=== PATIENT | female | born 1965 | race Caucasian/White ===

== ENCOUNTER 2020-09-21 09:11 | Outpatient (REF) | payer OTHER, SELFPAY ==
[2020-09-23 20:57] LABS: HPV mRNA E6/E7 rflx Not Detected (Not Detected)
== END 2020-09-21 09:12 | disposition home or self-care (01) ==
LOC: HO.LAB 09:11
PROVIDERS: PCP Internal Medicine; Visit Provider Obstetrics & Gynecology
DX: Z01.419 Encounter for gynecological examination (general) (routine) without abnormal findings (principal); N87.1 Moderate cervical dysplasia; N95.9 Unspecified menopausal and perimenopausal disorder; Z11.51 Encounter for screening for human papillomavirus (HPV); E55.9 Vitamin D deficiency, unspecified; I10 Essential (primary) hypertension; Z91.013 Allergy to seafood
CPT/HCPCS: 36415; 87624; 88141; 88142

== ENCOUNTER 2020-10-06 08:24 | Outpatient (REF) | payer OTHER, SELFPAY ==
--- NOTE | ~2020-10-06 | MM_ITS ---
EXAMINATION: MM SCREENING DIGITAL BREAST TOMOSYNTHESIS, BILATERAL CLINICAL INFORMATION: Screening. Asymptomatic. The lifetime risk of breast cancer based on the Tyrer-Cuzick Model is 8.2%. COMPARISON: Mammography: November 23, 2018 and studies dating back to April 23, 2010 TECHNIQUE: Digital breast tomosynthesis is performed in both the craniocaudal and mediolateral oblique views along with computer-aided detection (CAD). Synthesized 2D images are generated from the tomosynthesis. FINDINGS: There are scattered areas of fibroglandular density (ACR BI-RADS breast composition Category b). There are no significant masses, abnormal calcifications, or other abnormalities. MM/MM tomosynthesis screening BI IMPRESSION: There are no significant changes from prior study. ASSESSMENT: BI-RADS 1: Negative RECOMMENDATION: Routine annual mammography screening. This patient's information was entered into a reminder system with a target due date for their next mammogram.
== END 2020-10-06 08:25 | disposition home or self-care (01) ==
LOC: HO.MAMMO 08:24
PROVIDERS: Visit Provider Internal Medicine
DX: Z12.31 Encounter for screening mammogram for malignant neoplasm of breast (principal)
CPT/HCPCS: 77063; 77067

== ENCOUNTER → 2020-10-07 10:31 | Outpatient (BNVA) | payer OTHER, SELFPAY | PROVIDERS: PCP Internal Medicine; Visit Provider Obstetrics & Gynecology ==

== ENCOUNTER → 2020-10-29 13:51 | Outpatient (BNVA) | payer OTHER, SELFPAY | PROVIDERS: PCP Internal Medicine; Visit Provider Obstetrics & Gynecology ==

== ENCOUNTER 2020-11-11 09:41 | Outpatient (REF) | payer OTHER, SELFPAY | END 2020-11-11 09:42 | disposition home or self-care (01) | LOC: HO.LAB 09:41 | PROVIDERS: PCP Internal Medicine; Visit Provider Obstetrics & Gynecology | DX: R87.610 Atypical squamous cells of undetermined significance on cytologic smear of cervix (ASC-US) (principal); R87.810 Cervical high risk human papillomavirus (HPV) DNA test positive | CPT/HCPCS: 57454; 88305 ==

== ENCOUNTER → 2020-12-01 11:28 | Outpatient (BNVA) | payer OTHER, SELFPAY | PROVIDERS: PCP Internal Medicine; Visit Provider Obstetrics & Gynecology ==

== ENCOUNTER → 2021-03-11 10:09 | Outpatient (BNVA) | payer OTHER, SELFPAY | PROVIDERS: PCP Internal Medicine; Visit Provider Surgery ==

== ENCOUNTER → 2021-03-25 09:13 | Outpatient (BNVA) | payer OTHER, SELFPAY | PROVIDERS: PCP Internal Medicine; Referring Provider Internal Medicine; Visit Provider Surgery ==

== ENCOUNTER 2021-04-13 09:59 | Outpatient (REF) | payer OTHER, SELFPAY ==
[2021-04-13 13:16] LABS: Influenza A PCR NEGATIVE (Negative); Influenza B PCR NEGATIVE (Negative); Resp Syncy Virus RNA Qual PCR NEGATIVE (Negative); SARS COV2 PCR INHOUSE NEGATIVE (Negative)
== END 2021-04-13 10:00 | disposition home or self-care (01) ==
LOC: HO.LAB 09:59
PROVIDERS: Visit Provider Physician Assistant Medical
DX: Z20.822 Contact with and (suspected) exposure to COVID-19 (principal); J06.9 Acute upper respiratory infection, unspecified
CPT/HCPCS: 0241U; 36415

== ENCOUNTER 2021-05-12 09:31 | Outpatient (REF) | payer OTHER, SELFPAY ==
[2021-05-12 09:45] LABS: MANUAL DIFF FLAG NO
[2021-05-12 09:52] LABS: Basophils Percent Auto 0.4 % (0-2); Eosinophils Absolute Auto 0.2 X10*3/uL (0.0-0.4); Eosinophils Percent Auto 3.5 % (0-4); Hematocrit 39.9 % (37.0-47.0); Hemoglobin 13.4 g/dl (12.0-16.0); Imm Gran Abs Auto 0.01 X10*3/uL (0.00-0.03); Imm Gran Pct Auto 0.2 % (0.0-0.4); Lymphocytes Absolute Auto 2.3 X10*3/uL (1.2-4.9); Lymphocytes Percent Auto 41.9 % (20-40); Mean Corpuscular HGB Conc 33.6 g/dl (31.0-35.0); Mean Corpuscular Hemoglobin 29.8 pg (27.0-33.0); Mean Corpuscular Volume 88.7 fL (80.0-98.0); Mean Platelet Volume 9.8 fL (9.4-12.3); Monocytes Absolute Auto 0.4 X10*3/uL (0.1-1.2); Monocytes Percent Auto 8.1 % (2-11); Neutrophils Absolute Auto 2.49 x10*3/uL (2.0-8.3); Neutrophils Percent Auto 45.9 % (45-73); Platelet Count 324 X10*3/uL (160-400); Red Cell Distribution Width 12.3 % (11.0-16.0); White Blood Count 5.4 X10*3/uL (4.8-10.8)
[2021-05-12 11:05] LABS: Alanine Aminotransferase 15 U/L (0-31); Albumin Level 4.4 g/dL (3.5-5.0); Alkaline Phosphatase 77 U/L (39-117); Anion Gap 11 (12-20); Aspartate Amino Transferase 17 U/L (5-31); Bilirubin Total 0.8 mg/dL (0.0-1.0); Blood Urea Nitrogen 17 mg/dL (9-16); Calcium 9.6 mg/dL (8.4-10.2); Carbon Dioxide 29 mmol/L (22-29); Chloride 102 mmol/L (96-108); Cholesterol 186 mg/dL; Estimated Glomerular Filt Rate > 60; Glucose Fasting 104 mg/dL (60-99); HDL Cholesterol 44 mg/dL; LDL Cholesterol Calculated 107 mg/dl; Potassium 4.5 mmol/L (3.3-5.1); Sodium 137 mmol/L (135-145); Thyroid Stimulating Hormone 2.62 uIU/mL (0.32-4.0); Total Protein 7.7 g/dL (6.5-8.0); Triglycerides 175 mg/dL
[2021-05-20 14:11] LABS: Vitamin D 25-OH, D2 13 ng/mL; Vitamin D 25-OH, D3 17 ng/mL; Vitamin D 25-OH, Total 30 ng/mL (30-100)
== END 2021-05-12 09:32 | disposition home or self-care (01) ==
LOC: HO.LAB 09:31
PROVIDERS: PCP Internal Medicine; Visit Provider Internal Medicine
DX: D64.9 Anemia, unspecified (principal); I10 Essential (primary) hypertension; E78.5 Hyperlipidemia, unspecified; L65.9 Nonscarring hair loss, unspecified; E55.9 Vitamin D deficiency, unspecified
CPT/HCPCS: 36415; 80053; 80061; 82306; 84443; 85025

== ENCOUNTER 2021-12-16 10:18 | Outpatient (REF) | payer OTHER, SELFPAY ==
[2021-12-23 03:36] LABS: HPV mRNA E6/E7 rflx Not Detected (Not Detected)
== END 2021-12-16 10:19 | disposition home or self-care (01) ==
LOC: HO.LAB 10:18
PROVIDERS: Visit Provider Obstetrics & Gynecology
DX: Z12.4 Encounter for screening for malignant neoplasm of cervix (principal); Z11.51 Encounter for screening for human papillomavirus (HPV); N87.0 Mild cervical dysplasia
CPT/HCPCS: 87624; 88142

== ENCOUNTER 2021-12-17 08:15 | Outpatient (REF) | payer OTHER, SELFPAY ==
--- NOTE | ~2021-12-17 | MM_ITS ---
EXAMINATION: MM SCREENING DIGITAL BREAST TOMOSYNTHESIS, BILATERAL CLINICAL INFORMATION: Screening. Asymptomatic. The lifetime risk of breast cancer based on the Tyrer-Cuzick Model is 7%. COMPARISON: Mammography: 10/06/2020, 11/23/2018, 05/24/2017 TECHNIQUE: Digital breast tomosynthesis is performed in both the craniocaudal and mediolateral oblique views along with computer-aided detection (CAD). Synthesized 2D images are generated from the tomosynthesis. Additional right MLO view is provided. FINDINGS: There are scattered areas of fibroglandular density (ACR BI-RADS breast composition Category b). There are no significant masses, abnormal calcifications, or other abnormalities. There are scattered bilateral round, rim, predominantly dermal calcifications again seen. No developing density. No significant changes. MM/MM tomosynthesis screening BI IMPRESSION: No mammographic evidence of malignancy. ASSESSMENT: BI-RADS 2: Benign RECOMMENDATION: Routine annual mammography screening. This patient's information was entered into a reminder system with a target due date for their next mammogram.
== END 2021-12-17 08:16 | disposition home or self-care (01) ==
LOC: HO.MAMMO 08:15
PROVIDERS: PCP Internal Medicine; Visit Provider Internal Medicine
DX: Z12.31 Encounter for screening mammogram for malignant neoplasm of breast (principal)
CPT/HCPCS: 77063; 77067

== ENCOUNTER 2023-01-04 09:48 | Outpatient (REF) | payer OTHER, SELFPAY ==
--- NOTE | ~2023-01-04 | MM_ITS ---
EXAMINATION: MM SCREENING DIGITAL BREAST TOMOSYNTHESIS, BILATERAL CLINICAL INFORMATION: Screening. Asymptomatic. The lifetime risk of breast cancer based on the Tyrer-Cuzick Model is 7%. COMPARISON: Mammography: This study is compared to prior exams dating back to 2019. TECHNIQUE: Digital breast tomosynthesis is performed in both the craniocaudal and mediolateral oblique views along with computer-aided detection (CAD). Synthesized 2D images are generated from the tomosynthesis. FINDINGS: The breasts are extremely dense, which lowers the sensitivity of mammography (ACR BI-RADS breast composition Category d). There are no significant masses, abnormal calcifications, or other abnormalities. MM/MM tomosynthesis screening BI IMPRESSION: No mammographic evidence of malignancy. ASSESSMENT: BI-RADS BI-RADS 1 - Negative RECOMMENDATION: Routine annual mammography screening. 1 year F/U This patient's information was entered into a reminder system with a target due date for their next mammogram.
== END 2023-01-04 09:49 | disposition home or self-care (01) ==
LOC: HO.MAMMO 09:48
PROVIDERS: PCP Internal Medicine; Visit Provider Internal Medicine
DX: Z12.31 Encounter for screening mammogram for malignant neoplasm of breast (principal)
CPT/HCPCS: 77063; 77067

== ENCOUNTER → 2023-01-04 10:00 | Outpatient (BNV) | payer OTHER, SELFPAY | PROVIDERS: PCP Internal Medicine; Visit Provider Radiology Diagnostic Radiology | DX: Z12.31 Encounter for screening mammogram for malignant neoplasm of breast (principal) | CPT/HCPCS: 77067 ==

== ENCOUNTER 2023-02-21 09:51 | Outpatient (REF) | payer OTHER, SELFPAY ==
[2023-02-21 18:05] LABS: CT PCR NOT DETECTED (Not Detect.); NG PCR NOT DETECTED (Not Detect.)
[2023-02-22 15:11] LABS: BV Int Neg Control Negative (Negative); BV Int Pos Control Positive (Positive)
[2023-02-23 04:13] LABS: HPV mRNA E6/E7 rflx Not Detected (Not Detected)
== END 2023-02-21 09:52 | disposition home or self-care (01) ==
LOC: HO.LNP 09:51
PROVIDERS: PCP Internal Medicine; Visit Provider Advanced Practice Midwife
DX: Z01.419 Encounter for gynecological examination (general) (routine) without abnormal findings (principal); Z11.51 Encounter for screening for human papillomavirus (HPV); Z20.2 Contact with and (suspected) exposure to infections with a predominantly sexual mode of transmission; N95.1 Menopausal and female climacteric states; N87.0 Mild cervical dysplasia; N87.1 Moderate cervical dysplasia
CPT/HCPCS: 0353U; 87480; 87510; 87624; 87660; 88142

== ENCOUNTER 2023-02-21 09:51 | Outpatient (AMB) | payer OTHER, SELFPAY ==
--- NOTE | 2023-02-21 09:53 | MHC.OFFVIS ---
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 She also needs Pap smears she has had abnormal Paps and she had a LEEP and her last Pap was normal. She just recently had her mammogram. 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 She sometimes has trouble sleeping she gets up does some reading for a while goes back to bed but her sleep is sporadic. She is not having any other major issues she tries to eat well and she is very active at work physically. And on her feet all the time. Her last fall and she moved her son and sister into the house because she did not want to be alone. [facility] Medical History (Updated 02/21/23 @ 10:42 by Shira Caldwell CNM) MAYANK II (cervical intraepithelial neoplasia II) Essential hypertension Hair loss Hypovitaminosis D Insomnia Mild depression Physical exam Tension headache Surgical History History of loop electrical excision procedure (LEEP) Family History Father Diabetes Hypertension Mother Hypertension Stroke Diabetes Paternal Aunt Cancer Family/Other FH: mental illness Son In good health Social History Housing: Apartment Alcohol intake: never Patient Tobacco Use Status: Never used Tobacco e-Cigarette/Vaping Use: Never Used Second Hand Smoke Exposure: No service: No Current occupational status: employed Current occupational exposures/hazards: No Cognitive needs: No Hearing needs: No Vision needs: No Female Reproductive History Menstrual Age of Menarche: 12 Age of menopause: 52 Total pregnancies: 1 Number of Living Children: 1 Date of last pap smear: 12/16/21 (wnl) History of abnormal pap smear: Yes (09/21/2020 ASCUS, 2018 CINI, 2017 ASCUS + HPV, 2016 LGSIL) Physical Exam Vital Signs: Last Vital Signs BP 132/70 02/21/23 09:54 BMI result Body Mass Index 27.2 Const General: healthy appearing, comfortable, no acute distress, well developed and alert Nutritional Appearance: average body habitus Orientation/consciousness: patient oriented x3 Limitations: no limitations HEENT Head: Yes normocephalic Neck Neck: Yes normal visual inspection Chest Chest palpation & inspection: normal inspection of the chest Breast/axilla inspection: normal inspection of the breasts and normal inspection of the axillae Breast/axilla palpation: normal palpation of the breasts and normal palpation of the axillae Resp Effort & Inspection: normal respiratory effort GI Inspection: Yes normal to inspection, No Abdominal wall edema and No distended Palpation (GI): Soft to palpation and nontender Other: Labia majora have multiple lesions consistent with lipomas underneath the surface of the skin that her tinged yellow. They are firm to the touch they do not itch or bother her they been there for few years. Cervix is multiparous consistent with status post LEEP and post menopausal. Uterus is small anteverted mobile nontender and easily palpable adnexa nontender non palpable good tone with Kegel. General: Yes bladder normal to palpation External Female Exam: normal external appearance and normal appearance of the urethra Speculum Exam - Vagina: normal appearance of the vagina, normal palpation and normal vaginal discharge Speculum Exam - Cervix: normal appearance of the cervix, normal palpation and nontender Bimanual exam- vagina & uterus: normal bimanual exam, normal palpation, uterine size normal, bladder normal to palpation, consistency normal, normal palpation, uterine mobility normal, uterine shape normal, No Cervical tenderness present, non-tender and no cervical motion tenderness Bimanual Exam- Adnexa, other: normal adnexae, no masses, normal and No adnexal tenderness Neuro General: patient oriented x3 Assessment & Plan Assessment & Plan (1) Well woman exam: Code(s): Z01.419 - Encounter for gynecological examination (general) (routine) without abnormal findings (2) MAYANK II (cervical intraepithelial neoplasia II): Comment: 2018 status post LEEP cone negative margins 05/2019 Pap unsatisfactory HPV negative 06/2019 negative co testing Code(s): N87.1 - Moderate cervical dysplasia (3) Dysplasia of cervix, low grade (MAYANK 1): Code(s): N87.0 - Mild cervical dysplasia (4) Breast cancer screening: Code(s): Z12.39 - Encounter for other screening for malignant neoplasm of breast (5) Perimenopause: Code(s): N95.1 - Menopausal and female climacteric states Plan -----Discussed in this visit the following: healthy balanced diet, regular and consistent exercise, getting recommended health screens, doing the best she can for her particular health concerns, kegel exercises, pap smear screening and followup recommendations, mammography screening and SBE, normal changes in cycles in her life stage--- . Reviewed her well thought of strategies to help her sleep. Reviewed that Dr. Dawson had suggested just warm washcloth for the labial lesions and that is really all I could suggest as well they are not bothersome to her. They do not appear to be HPV related. Discussed the range of lissett menopausal symptoms and the challenges and solutions most of which she is employed she is not really bothered by most symptoms other than sleep interruption which also might be related to the grief from loss of her . Orders: Orders Bacterial Vaginosis Panel Today N87.1 - Moderate cervical dysplasia CT NG by PCR Today N87.1 - Moderate cervical dysplasia Pap Smear Today N87.1 - Moderate cervical dysplasia Coding Level of Care Code Est Pt Prev Care 40-64y(93666) Diagnoses Well woman exam Z01.419 MAYANK II (cervical intraepithelial neoplasia II) N87.1 Dysplasia of cervix, low grade (MAYANK 1) N87.0 Breast cancer screening Z12.39 Perimenopause N95.1
[2023-02-21 09:54] VITALS: BP 132/70; BMI 27.2
== END 2023-02-21 11:15 | disposition home or self-care (01) ==
LOC: HO.HWS 09:51
PROVIDERS: PCP Internal Medicine; Visit Provider Advanced Practice Midwife
DX: Z01.419 Encounter for gynecological examination (general) (routine) without abnormal findings (principal); N87.1 Moderate cervical dysplasia; N87.0 Mild cervical dysplasia; Z12.39 Encounter for other screening for malignant neoplasm of breast; N95.1 Menopausal and female climacteric states
CPT/HCPCS: 99396

== ENCOUNTER 2023-10-12 10:48 | Outpatient (AMB) | payer OTHER, SELFPAY ==
[2023-10-12 11:24] VITALS: BP 150/90; PULSE 104; TEMP 36.4; O2SAT 96; BMI 28.3
--- NOTE | 2023-10-12 11:24 | MHC.OFFWIV ---
Intake Vital Signs 10/12/23 11:24 Height 5 ft 4 in Weight 165 lb BMI 28.3 BP 150/90 H Blood Pressure Location Lt brachial Position Sitting Pulse 104 H Pulse Source Pulse Oximeter Temp 97.6 F Temp Source Temporal Artery Scan Pulse Oximetry (%) 96 Oxygen Delivery Method Room Air Intake Visit Reasons: EP Sore throat, body ache [phone] Intake Note: pt is here today for sore throat body ache started 2 days ago Patient Tobacco Use Status: Never used Tobacco Allergies shrimp Allergy (Intermediate, Verified 10/12/23 11:36) rash,swollen face Do you need a note to return to daycare/school/sports/work: Yes HPI EP Sore throat, body ache [phone] HPI Details This is a 58-year-old female patient who presents today with a 2 day history of sore throat and body aches. Has not taken her temperature, however has felt very hot/cold, particularly at nighttime. 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 Denies any respiratory symptoms or cough. Denies any GI symptoms. States COVID test at work/home was negative. [facility] Medical History Physical exam Hair loss MAYANK II (cervical intraepithelial neoplasia II) Insomnia Tension headache Mild depression Hypovitaminosis D Essential hypertension Surgical History History of loop electrical excision procedure (LEEP) Family History Father Diabetes Hypertension Mother Hypertension Stroke Diabetes Paternal Aunt Cancer Family/Other FH: mental illness Son In good health Social History Housing: Apartment Alcohol intake: never Patient Tobacco Use Status: Never used Tobacco e-Cigarette/Vaping Use: Never Used Second Hand Smoke Exposure: No service: No Current occupational status: employed Current occupational exposures/hazards: No Cognitive needs: No Hearing needs: No Vision needs: No Female Reproductive History Menstrual Age of Menarche: 12 Review of Systems Const All systems reviewed & are unremarkable except as noted in HPI and below Physical Exam Vital Signs: Last Vital Signs Temp 97.6 F 10/12/23 11:24 Pulse 112 H 10/12/23 11:24 BP 160/100 H 10/12/23 11:24 Pulse Ox 96 10/12/23 11:24 Oxygen Delivery Method Room Air 10/12/23 11:24 BMI result Body Mass Index 28.3 Const General: cooperative and ill appearing acutely HEENT Head: Yes normal to inspection Ears: hearing grossly normal bilaterally General nose exam: Normal external nose present Face and sinus: Yes normal facial exam Throat: Yes posterior oropharynx abnormal (Tonsillar hypertrophy, erythema, exudate present b/l) Neck Neck: Yes no lymphadenopathy Resp Effort & Inspection: normal respiratory effort Auscultation: clear to auscultation bilaterally Cardio Rate: regular rate Rhythm: regular rhythm Skin General skin exam: no rashes or lesions noted Extrem General: Yes capillary refill normal and Yes no clubbing, cyanosis or edema Psych Appearance: grossly normal Mental Status: mental status grossly normal Speech and movement: Normal speech and movement present Results AMB Rapid Strep AMB Rapid Strep Negative Last Edit by Shantal Amanda MA on 10/12/23 11:53 Assessment & Plan Assessment & Plan (1) Pharyngitis: Code(s): J02.9 - Acute pharyngitis, unspecified Qualifiers: Pharyngitis/tonsillitis etiology: unspecified etiology Qualified Code(s): J02.9 - Acute pharyngitis, unspecified Plan: Rapid strep in the office was negative, however patient has symptoms consistent with strep and erythematous and hypertrophic tonsils with exudate. We will treat for strep. Reviewed indications, use, possible side effects of medication. Advised throat sprays/lozenges as needed, in addition to Tylenol/Motrin as needed for symptom management. Work note was provided. If she does not improve with treatment, she can return to the clinic for further evaluation. COVID/flu/RSV swab was obtained today, and she is aware she will be notified of these results once they are available. Orders: Orders SARS-CoV2/FLU/RSV Today J02.9 - Acute pharyngitis, unspecified Medications: New penicillin V potassium 500 mg PO BID 10 days 20 tabs 0RF J02.0 - Streptococcal pharyngitis Coding Level of Care Code Est Pt Level 4 (87039) Diagnoses Pharyngitis, unspecified etiology J02.9 Pharyngitis/tonsillitis etiology: unspecified etiology
== END 2023-10-12 12:22 | disposition home or self-care (01) ==
PROVIDERS: PCP Internal Medicine; Visit Provider Nurse Practitioner Family
DX: J02.9 Acute pharyngitis, unspecified (principal)
CPT/HCPCS: 87880; 99214

== ENCOUNTER 2023-10-12 12:24 | Outpatient (REF) | payer OTHER, SELFPAY ==
[2023-10-12 17:12] LABS: Influenza A PCR NEGATIVE (Negative); Influenza B PCR NEGATIVE (Negative); Resp Syncy Virus RNA Qual PCR NEGATIVE (Negative); SARS COV2 PCR INHOUSE NEGATIVE (Negative)
== END 2023-10-12 12:25 | disposition home or self-care (01) ==
LOC: HO.LAB 12:24
PROVIDERS: Visit Provider Nurse Practitioner Family
DX: J02.9 Acute pharyngitis, unspecified (principal)
CPT/HCPCS: 0241U

== ENCOUNTER 2023-12-19 08:58 | Outpatient (AMB) | payer OTHER, SELFPAY ==
[2023-12-19 09:07] VITALS: BP 170/110; BMI 27.6
--- NOTE | 2023-12-19 09:07 | A.OFFPC_ITS ---
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 Required: No Accompanied by: Self / Same As Patient Allergies shrimp Allergy (Intermediate, Verified 12/19/23 09:16) rash,swollen face Medication List - Last Reconciled 12/19/23 by Mary Heard MD hydrochlorothiazide 25 mg PO DAILY 90 days lisinopril 20 mg PO DAILY 90 days Tobacco use date assessed: 12/19/23 Dental Screening Dental Screen Date: 12/19/23 Did you have a dental visit in the last 12 months?: No Did you have a dental problem in the last 6 months where you did not have access to dental care?: No Was dental information given to patient?: Patient has dentist HPI HPI Comments History of Present Illness Details This is a 58-year-old female with mild depression that comes for her physical exam. For her depression she declines any treatment or counseling. Follow-up visit requested. Last Pap smear was 2022. Last mammogram was 2022. 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 I will refer her through open access again. Has blood pressure elevated and she did took her medications. Blood pressure will be recheck in 3 weeks by nurse navigator. No chest pain or shortness on breath. Complains of having episodes of diarrhea alternating with episodes of constipation. Also has some chronic low back pain that is on and off. [facility] Medical History (Updated 12/19/23 @ 09:25 by Mary Heard MD) Physical exam Hair loss MAYANK II (cervical intraepithelial neoplasia II) Insomnia Tension headache Mild depression Hypovitaminosis D Essential hypertension Surgical History History of loop electrical excision procedure (LEEP) Family History (Updated 12/19/23 @ 09:51 by Mary Heard MD) Father Diabetes Hypertension Mother Hypertension Stroke Diabetes Paternal Aunt Cancer Family/Other FH: mental illness Son In good health Sister Scleroderma Congestive heart failure Sister Systemic lupus erythematosus Social History Housing: Apartment Alcohol intake: never Patient Tobacco Use Status: Never used Tobacco e-Cigarette/Vaping Use: Never Used Second Hand Smoke Exposure: No service: No Current occupational status: employed Current occupational exposures/hazards: No Cognitive needs: No Hearing needs: No Vision needs: Yes Female Reproductive History Menstrual Age of Menarche: 12 Questionnaire PHQ-9 Over the last 2 weeks, how often have you been bothered by any of the following problems? 1. Little interest or pleasure in doing things: not at all 2. Feeling down, depressed, or hopeless: several days 3. Trouble falling or staying asleep, or sleeping too much: nearly every day 4. Feeling tired or having little energy: not at all 5. Poor appetite or overeating: not at all 6. Feeling bad about yourself - or that you are a failure or have let yourself or your family down: not at all 7. Trouble concentrating on things, such as reading the newspaper or watching television: not at all 8. Moving or speaking so slowly that other people could have noticed. Or the opposite - being so fidgety or restless that you have been moving around a lot more than usual: not at all 9. Thoughts that you would be better off or of hurting yourself in some way: not at all Total score: 4 Depression Screening Interpretation: Positive Depression Screening Follow-up: Existing condition and Follow-up Visit Requested Depression Screening Done: Yes 01425 - PHQ-9 Billing: Yes Source: Developed by Drs. Adán Schaeffer, Amber Barahona, Vance Hoyt and colleagues, with an educational jorge from [employer]. Thrive Questionnaire Date Thrive assessed: 12/19/23 I am a: Patient What is your living situation today?: I have a steady place to live Within the past 12 months, did the food you bought not last and you didn't have the money to get more?: Never true Within the past 12 months, did you worry whether your food would run out before you got money to buy more?: Never true Do you have trouble paying for medicines?: No Do you have trouble getting transportation to medical appointments?: No Do you have trouble paying your heating and electricity bill?: No Do you have trouble taking care of your child, family member or friend?: No Do you have trouble with day-to-day activities such as bathing, preparing meals, shopping, managing finances, etc.?: No Are you currently unemployed and looking for a job?: No Are you interested in more education?: No Please select the resources that you would like help with: None Currently or been in a relationship where the following occur: no concerns reported THRIVE Score: 0 AUDIT C Alcohol Use Questionnaire (AUDIT-C) 1. How often do you have a drink containing alcohol?: Never Total Score: 0 Score Reviewed/Action Taken: No FRANCISCO-7 AMB Questionnaire FRANCISCO-7 Date FRANCISCO - 7 assessed: 12/19/23 Feeling nervous, anxious, or on edge: 0 = Not at all Not being able to stop or control worryin = Not at all Worrying too much about different things: 0 = Not at all Trouble relaxin = Not at all Being so restless that it is hard to sit still: 0 = Not at all Becoming easily annoyed or irritable: 0 = Not at all Feeling afraid as if something awful might happen: 0 = Not at all Total FRANCISCO-7 score (0-4 normal; 5-9 mild; 10-14 moderate; 15-21 severe): 0 Source: Developed by Drs. Adán Schaeffer, Amber Barahona, Vance Hoyt and colleagues, with an educational jorge from [employer]. FRANCISCO-7 Assessment Billing FRANCISCO-7 Assessment Tool: FRANCISCO-7 Assessment 40016 Review of Systems Const All systems reviewed & are unremarkable except as noted in HPI and below Card Denies chest pain at rest, Denies chest pain with activity, Denies edema, Denies irregular heart rhythm, Denies claudication, Denies dyspnea, Denies dyspnea on exertion, Denies orthopnea, Denies paroxysmal nocturnal dyspnea and Denies slow heart rate Resp Denies cough, Denies dyspnea and Denies dyspnea on exertion Neuro Denies lack of coordination Physical exam (Primary Care) Vital Signs: Last Vital Signs BP 152/92 H 12/19/23 09:40 BMI result Body Mass Index 27.6 Tobacco/Smoking Status: Tobacco use Status Tobacco use date assessed 12/19/23 12/19/23 09:12 Patient Tobacco Use Status Never used Tobacco 12/19/23 09:12 e-Cigarette/Vaping Use Never Used 12/19/23 09:12 PHQ-9: PHQ-9 Score PHQ-9: Total score 4 12/19/23 09:52 Depression Screening Interpretation: Positive Depression Screening Follow-up: Existing condition and Follow-up Visit Requested Thrive Assessment: Date of Thrive Assessment Date Thrive assessed 12/19/23 12/19/23 09:12 Currently or been in a relationship where the following occur: no concerns reported Const Orientation/consciousness: patient oriented x3 HENMT Head: Yes normal to inspection, Yes normocephalic and Yes atraumatic Ears: external ears normal Eyes General: appearance normal, both eyes and all related structures Eyelids: Yes eyelids normal Conjunctivae: conjunctivae normal Neck Neck: Yes normal visual inspection and Yes supple Resp Effort & Inspection: normal respiratory effort Auscultation: clear to auscultation bilaterally Cardio Jugular venous distension: no JVD Rate: regular rate Rhythm: regular rhythm Heart sounds: S1 normal heart sound present and S2 normal heart sound present GI Inspection: Yes normal to inspection Palpation (GI): Soft to palpation and nontender Auscultation: normal bowel sounds Skin General skin exam: no rashes or lesions noted Neuro General: patient oriented x3 and no focal motor deficits Extrem General: Yes full ROM Psych Appearance: grossly normal Assessment and Plan Assessment & Plan (1) Physical exam: Code(s): Z00.00 - Encounter for general adult medical examination without abnormal findings Plan: Repeat in a year. (2) Mild depression: Code(s): F32.0 - Major depressive disorder, single episode, mild Plan: Follow-up visit requested. Declines medication or counseling. Orders: Orders Vitamin D 25-OH Total Today E55.9 - Vitamin D deficiency, unspecified Celiac Diagnostic Gliadin TTG Today R10.9 - Unspecified abdominal pain Lipid Panel Today E78.5 - Hyperlipidemia, unspecified, Z00.00 - Encounter for general adult medical examination without abnormal findings Comprehensive [place]. Panel Fast Today Z00.00 - Encounter for general adult m edical examination without abnormal findings MARY Reflex Titer and Pattern Today M47.816 - Spondylosis without myelopathy or radiculopathy, lumbar region Complete Blood Count Auto Diff Today M47.816 - Spondylosis without myelopathy or radiculopathy, lumbar region Erythrocyte Sedimentation Rate Today M47.816 - Spondylosis without myelopathy or radiculopathy, lumbar region Thyroid Stimulating Hormone Today L65.9 - Nonscarring hair loss, unspecified Referrals Open Access Screening Colonoscopy Referral Z12.11 - Encounter for screening for malignant neoplasm of colon Coding Level of Care Code Est Pt Prev Care 40-64y(88199) Diagnoses Physical exam Z00.00 Mild depression F32.0 Additional Codes FRANCISCO-7 Assessment Billing - FRANCISCO-7 Assessment Tool: FRANCISCO-7 Assessment 59114 ([id number]) Time Spent (min) 35
[2023-12-19 09:40] VITALS: BP 152/92
== END 2023-12-19 09:47 | disposition home or self-care (01) ==
PROVIDERS: PCP Internal Medicine; Visit Provider Internal Medicine
DX: Z00.00 Encounter for general adult medical examination without abnormal findings (principal); F32.0 Major depressive disorder, single episode, mild
CPT/HCPCS: 99396

== ENCOUNTER 2023-12-19 10:03 | Outpatient (REF) | payer OTHER, SELFPAY ==
[2023-12-19 10:18] LABS: MANUAL DIFF FLAG NO
[2023-12-19 11:11] LABS: Basophils Percent Auto 0.6 % (0-2); Eosinophils Absolute Auto 0.2 X10*3/uL (0.0-0.4); Eosinophils Percent Auto 2.2 % (0-4); Hematocrit 40.7 % (37.0-47.0); Hemoglobin 13.7 g/dl (12.0-16.0); Imm Gran Abs Auto 0.02 X10*3/uL (0.00-0.03); Imm Gran Pct Auto 0.3 % (0.0-0.4); Lymphocytes Percent Auto 30.4 % (20-40); Mean Corpuscular HGB Conc 33.7 g/dl (31.0-35.0); Mean Corpuscular Hemoglobin 29.6 pg (27.0-33.0); Mean Corpuscular Volume 87.9 fL (80.0-98.0); Monocytes Absolute Auto 0.5 X10*3/uL (0.1-1.2); Monocytes Percent Auto 7.6 % (2-11); Neutrophils Percent Auto 58.9 % (45-73); Platelet Count 423 X10*3/uL (160-400); Red Blood Count 4.63 X10*6/uL (4.20-5.50); Red Cell Distribution Width 12.3 % (11.0-16.0); White Blood Count 6.7 X10*3/uL (4.8-10.8)
[2023-12-19 12:01] LABS: Erythrocyte Sedimentation Rate 23 MM/HR (0-20)
[2023-12-19 12:19] LABS: Alanine Aminotransferase 18 U/L (0-31); Albumin Level 4.4 g/dL (3.5-5.0); Alkaline Phosphatase 90 U/L (39-117); Anion Gap 11 (12-20); Aspartate Amino Transferase 18 U/L (5-31); Bilirubin Total 0.5 mg/dL (0.0-1.0); Blood Urea Nitrogen 15 mg/dL (9-16); Calcium 10.1 mg/dL (8.4-10.2); Carbon Dioxide 29 mmol/L (22-29); Chloride 104 mmol/L (96-108); Cholesterol 204 mg/dL (<200); Estimated Glomerular Filt Rate > 60; Glucose Fasting 104 mg/dL (60-99); HDL Cholesterol 45 mg/dL (>40); LDL Cholesterol Calculated 113 mg/dL (<100); Potassium 4.3 mmol/L (3.3-5.1); Sodium 140 mmol/L (135-145); Total Protein 8.2 g/dL (6.5-8.0); Triglycerides 233 mg/dL (<150); Vitamin D 25-OH Total 30.2 ng/mL (>30)
[2023-12-24 12:14] LABS: Anti Nuclear Antibody Screen POSITIVE (NEGATIVE)
== END 2023-12-19 10:04 | disposition home or self-care (01) ==
LOC: HO.LAB 10:03
PROVIDERS: PCP Internal Medicine; Visit Provider Internal Medicine
DX: Z00.00 Encounter for general adult medical examination without abnormal findings (principal); E55.9 Vitamin D deficiency, unspecified; E78.5 Hyperlipidemia, unspecified; M47.816 Spondylosis without myelopathy or radiculopathy, lumbar region; L65.9 Nonscarring hair loss, unspecified
CPT/HCPCS: 36415; 80053; 80061; 82306; 84443; 85025; 85652; 86038; 86039

== ENCOUNTER 2024-01-12 09:21 | Outpatient (REF) | payer OTHER, SELFPAY | END 2024-01-12 09:22 | disposition home or self-care (01) | LOC: HO.MAMMO 09:21 | PROVIDERS: PCP Internal Medicine; Visit Provider Internal Medicine | DX: Z12.31 Encounter for screening mammogram for malignant neoplasm of breast (principal) | CPT/HCPCS: 77063; 77067 ==

== ENCOUNTER → 2024-01-12 09:30 | Outpatient (BNV) | payer OTHER, SELFPAY | PROVIDERS: PCP Internal Medicine; Visit Provider Radiology Diagnostic Radiology | DX: Z12.31 Encounter for screening mammogram for malignant neoplasm of breast (principal) | CPT/HCPCS: 77063; 77067 ==

== ENCOUNTER 2024-02-26 10:01 | Outpatient (REF) | payer OTHER, SELFPAY ==
[2024-02-28 20:49] LABS: HPV mRNA E6/E7 Not Detected (Not Detected)
== END 2024-02-26 10:02 | disposition home or self-care (01) ==
LOC: HO.HHCLNP 10:01
PROVIDERS: PCP Internal Medicine; Visit Provider Advanced Practice Midwife
DX: Z01.419 Encounter for gynecological examination (general) (routine) without abnormal findings (principal)
CPT/HCPCS: 36415; 87624; 88175

== ENCOUNTER 2024-02-26 10:01 | Outpatient (AMB) | payer OTHER, SELFPAY ==
--- NOTE | 2024-02-26 10:05 | MHC.OFFVIS ---
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 She has some bumps on her labia that have been there for a while including at her last colpo and biopsy sometimes they get a little bit itchy and inflamed but then they subside she just uses cool water on she was interested having look at them again. She is in the planning stages for colonoscopy. 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 She will be getting the new vaccine when possible and she is contemplating shingles vaccine as well. She is up-to-date on mammography. She does not get exercise per se but she walks a lot at work. [facility] Medical History (Updated 02/26/24 @ 10:33 by Shira Caldwell CNM) Physical exam Hair loss MAYANK II (cervical intraepithelial neoplasia II) Insomnia Tension headache Mild depression Hypovitaminosis D Essential hypertension Surgical History History of loop electrical excision procedure (LEEP) Family History Father Diabetes Hypertension Mother Hypertension Stroke Diabetes Paternal Aunt Cancer Family/Other FH: mental illness Son In good health Sister Scleroderma Congestive heart failure Sister Systemic lupus erythematosus Social History Housing: Apartment Alcohol intake: never Patient Tobacco Use Status: Never used Tobacco e-Cigarette/Vaping Use: Never Used Second Hand Smoke Exposure: No service: No Current occupational status: employed Current occupational exposures/hazards: No Cognitive needs: No Hearing needs: No Vision needs: Yes Female Reproductive History Menstrual Age of Menarche: 12 Duration of menses: 3-5 days control method: none Total pregnancies: 1 Full term: 1 Date of last pap smear: 02/21/23 (negative,2019,neg) History of abnormal pap smear: Yes (2018,LEEP) Physical Exam Vital Signs: Last Vital Signs BP 126/74 02/26/24 10:10 BMI result Body Mass Index 29.5 Const General: healthy appearing, comfortable, no acute distress, well developed and alert Nutritional Appearance: average body habitus Orientation/consciousness: patient oriented x3 Limitations: no limitations HEENT Head: Yes normocephalic Neck Neck: Yes normal visual inspection Chest Chest palpation & inspection: normal inspection of the chest Breast/axilla inspection: normal inspection of the breasts and normal inspection of the axillae Breast/axilla palpation: normal palpation of the breasts and normal palpation of the axillae Resp Effort & Inspection: normal respiratory effort GI Inspection: Yes normal to inspection, No Abdominal wall edema and No distended Palpation (GI): Soft to palpation and nontender Other: Normal external exam bumps on labia consistent with see him collections under skin surface patient is welcome to seek gynecology assessment if she chooses they are not consistent with folliculitis or HPV or any other lesion concern Vagina pink and moist cervix round consistent with status post LEEP pink and smooth mobile nontender uterus midposition mobile nontender adnexa nontender not enlarged good tone with Kegel. General: Yes bladder normal to palpation External Female Exam: normal external appearance and normal appearance of the urethra Speculum Exam - Vagina: normal appearance of the vagina, normal palpation and normal vaginal discharge Speculum Exam - Cervix: normal appearance of the cervix, normal palpation and nontender Bimanual exam- vagina & uterus: normal bimanual exam, normal palpation, uterine size normal, bladder normal to palpation, consistency normal, normal palpation, uterine mobility normal, uterine shape normal, No Cervical tenderness present, non-tender and no cervical motion tenderness Bimanual Exam- Adnexa, other: normal adnexae, no masses, normal and No adnexal tenderness Neuro General: patient oriented x3 Results Reviewed Results Reviewed: Surgical Pathology [id number] Name: Amber Vidales Age/Sex: 55/F Attending: Ras Dawson MD : 1965 Submitted by: Ras Dawson MD Copies to: Mary Soto MD MR #: [id number] Status: [facility] REF Collected: 11/11/20 Location: [facility] Received: 11/11/20 Diagnosis A. Endocervix, curettage: Low grade squamous intraepithelial lesion (MAYANK I). Benign endocervical glandular epithelium; negative for endocervical glandular atypia. B. Cervix, 2:00, biopsy: Low grade squamous intraepithelial lesion (MAYANK I). Endocervical glandular mucosa is not identified. C. Cervix, 7:00, biopsy: Benign endocervical glandular mucosa/ epithelium; negative for endocervical glandular atypia. COMMENT: These findings are concordant with the patient's prior abnormal HPV-negative Pap smear ([id number]) demonstrating atypical squamous cells of undetermined significance. Clinical History ASCUS, HPV+ Microscopic Description Microscopic sections reviewed. Material Received A. ECC B. Cervical biopsy at 2 o'clock C. Cervical biopsy at 7 o'clock Gross Description Received in three parts. Part A: Received in formalin labeled ECC is a 1.4 x 1.2 x 0.4 cm. aggregate of predominantly mucus and blood with multiple delicate threads of guerin-pink tissue. The specimen is submitted in toto in a single cassette labeled A. Part B: Received in formalin labeled Cx bx @ 2 o'clock is a 0.35 cm. in greatest dimension, glistening, semitranslucent, rubbery, guerin, white- pink, wedge-shaped fragment of mucosa, which is submitted in toto in a single cassette labeled B. Part C: Received in formalin labeled Cx bx @ 7 o'clock, along with a scant amount of clear mucus, is a 0.2 cm. in greatest dimension, semitranslucent, soft, guerin-pink, irregular fragment of mucosa, which is submitted in toto in a single cassette labeled C. Patient: Amber Vidales Age/Sex: 55/F MR#: [id number] Page 1 of 2 Name: Amber Vidales Age/Sex: 56/F Attending: Ras Dawson MD : 1965 Submitted by: Ras Dawson MD Copies to: MR #: [id number] Status: DEP REF Collected: 12/16/21 Location: [facility] Received: 12/17/21 Interpretation Satisfactory for evaluation. Negative for intraepithelial lesion or malignancy. HPV mRNA E6/E7: NOT DETECTED This assay detects E6/E7 viral messenger RNA (mRNA) from 14 high-risk HPV types (16, 18, 31, 33, 35, 39, 45, 51, 52, 56, 58, 59, 66, 68) HPV testing performed by [facility], [place], [place]. See reference laboratory pion of the EMR for entire report. Clinical Information LMP: Postmenopausal Previous PAP test: 09/21/2020 Other history:ASCUS, MAYANK I Material Received ThinPrep-Cervical Electronically Signed By: Lillian Carrasco MD 12/29/21 1102 The Pap Test is a screening procedure with the inherent possibility of both false negative and false positive results. Results should be interpreted in the context of historic and current clinical findings. Reliability of the Pap Test is enhanced by performing the test on a regular repetitive basis. Patient: Amber Vidales Age/Sex: 56/F MR#: [id number] Page 1 of 1 Name: Amber Vidales Age/Sex: 56/F Attending: Ras Dawson MD : 1965 Submitted by: Ras Dawson MD Copies to: MR #: [id number] Status: DEP REF Collected: 12/16/21 Location: [facility] Received: 12/17/21 Interpretation Satisfactory for evaluation. Negative for intraepithelial lesion or malignancy. HPV mRNA E6/E7: NOT DETECTED This assay detects E6/E7 viral messenger RNA (mRNA) from 14 high-risk HPV types (16, 18, 31, 33, 35, 39, 45, 51, 52, 56, 58, 59, 66, 68) HPV testing performed by [facility], [place], [place]. See reference laboratory pion of the EMR for entire report. Clinical Information LMP: Postmenopausal Previous PAP test: 09/21/2020 Other history:ASCUS, MAYANK I Material Received ThinPrep-Cervical Electronically Signed By: Lillian Carrasco MD 12/29/21 9692 The Pap Test is a screening procedure with the inherent possibility of both false negative and false positive results. Results should be interpreted in the context of historic and current clinical findings. Reliability of the Pap Test is enhanced by performing the test on a regular repetitive basis. Patient: Amber Vidales Age/Sex: 56/F MR#: [id number] Page 1 of 1 Assessment & Plan Assessment & Plan (1) MAYANK II (cervical intraepithelial neoplasia II): Comment: 2017 status post LEEP cone negative margins 05/2019 Pap unsatisfactory HPV negative 06/2019 negative co testing. 2020- ascus w HPV, colpo bx= MAYANK 1 02/21/2023 Pap negative with negative HPV. Code(s): N87.1 - Moderate cervical dysplasia Category: Medical (2) Breast cancer screening: Code(s): Z12.39 - Encounter for other screening for malignant neoplasm of breast Category: Medical (3) Dysplasia of cervix, low grade (MAYANK 1): Code(s): N87.0 - Mild cervical dysplasia Category: Medical (4) Well woman exam with routine gynecological exam: Code(s): Z01.419 - Encounter for gynecological examination (general) (routine) without abnormal findings Category: Medical (5) Perimenopause: Code(s): N95.1 - Menopausal and female climacteric states Category: Medical (6) Hypertension: Code(s): I10 - Essential (primary) hypertension Category: Medical Plan -----Discussed in this visit the following: healthy balanced diet, regular and consistent exercise, getting recommended health screens, doing the best she can for her particular health concerns, kegel exercises, pap smear screening and followup recommendations, mammography screening and SBE, normal changes in cycles in her life stage--- . Reviewed her plans for colonoscopy her regular screening for mammography what she is up-to-date on. Reviewed her plans for COVID vaccine and her careful attention to masking and prevention carrying COVID home as her sister is immune compromised. Reviewed the labial bumps that appeared to be collections of sebum they are not inflamed and appeared to have a whitish accretion under the skin surface. She is welcome to seek further assessment with gynecology at any time. Pap smear was done secondary to her somewhat recent abnormal Pap colpo 2020 followed by 2 negatives. (history of MAYANK 2 with LEEP prior to that). She is not sexually active for least the last 2 use so declined any testing vaginal mucus completely within normal healthy limits. Coding Level of Care Code Est Pt Prev Care 40-64y(95009) Diagnoses MAYANK II (cervical intraepithelial neoplasia II) N87.1 Breast cancer screening Z12.39 Dysplasia of cervix, low grade (MAYANK 1) N87.0 Well woman exam with routine gynecological exam Z01.419 Perimenopause N95.1 Hypertension I10
[2024-02-26 10:10] VITALS: BP 126/74; BMI 29.5
== END 2024-02-26 11:07 | disposition home or self-care (01) ==
LOC: HO.HWSM 10:01
PROVIDERS: PCP Internal Medicine; Visit Provider Advanced Practice Midwife
DX: Z01.419 Encounter for gynecological examination (general) (routine) without abnormal findings (principal); N87.1 Moderate cervical dysplasia; N87.0 Mild cervical dysplasia
CPT/HCPCS: 99396

== ENCOUNTER 2024-05-15 09:14 | Outpatient (AMB) | payer OTHER, SELFPAY ==
--- NOTE | 2024-05-15 09:18 | A.OFFPC_ITS ---
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: No Accompanied by: Self / Same As Patient Allergies shrimp Allergy (Intermediate, Verified 05/15/24 09:30) rash,swollen face Medication List - Last Reconciled 05/15/24 by Mary Heard MD hydrochlorothiazide 25 mg PO DAILY 90 days lisinopril 20 mg PO DAILY 90 days Tobacco use date assessed: 05/15/24 Dental Screening Dental Screen Date: 05/15/24 Did you have a dental visit in the last 12 months?: No Did you have a dental problem in the last 6 months where you did not have access to dental care?: No Was dental information given to patient?: No HPI HPI Comments History of Present Illness Details This is a 58-year-old female with hypertension, dyslipidemia, mild major depression and polyarthralgia that comes today for follow-up on her conditions. Blood pressure stable. Last cholesterol was elevated and this will be repeated. She declines counseling or treatment for depression because she has been dealing on its own and did try counseling few years ago when COVID started and did not felt like it work. She has a positive MARY and complains of diffuse joint pain. She also has a sister that of scleroderma complications and has another sister that has low abuse. Will be referred to rheumatology. [facility] Medical History (Updated 05/15/24 @ 12:28 by Mary Heard MD) Physical exam Hair loss MAYANK II (cervical intraepithelial neoplasia II) Insomnia Tension headache Mild depression Hypovitaminosis D Essential hypertension Surgical History History of loop electrical excision procedure (LEEP) Family History Father Diabetes Hypertension Mother Hypertension Stroke Diabetes Paternal Aunt Cancer Family/Other FH: mental illness Son In good health Sister Scleroderma Congestive heart failure Sister Systemic lupus erythematosus Social History Housing: Apartment Alcohol intake: never Patient Tobacco Use Status: Never used Tobacco e-Cigarette/Vaping Use: Never Used Second Hand Smoke Exposure: No service: No Current occupational status: employed Current occupational exposures/hazards: No Cognitive needs: No Hearing needs: No Vision needs: Yes Female Reproductive History Menstrual Age of Menarche: 12 Questionnaire PHQ-9 Over the last 2 weeks, how often have you been bothered by any of the following problems? 1. Little interest or pleasure in doing things: not at all 2. Feeling down, depressed, or hopeless: several days 3. Trouble falling or staying asleep, or sleeping too much: nearly every day 4. Feeling tired or having little energy: not at all 5. Poor appetite or overeating: not at all 6. Feeling bad about yourself - or that you are a failure or have let yourself or your family down: not at all 7. Trouble concentrating on things, such as reading the newspaper or watching television: not at all 8. Moving or speaking so slowly that other people could have noticed. Or the opposite - being so fidgety or restless that you have been moving around a lot more than usual: not at all 9. Thoughts that you would be better off or of hurting yourself in some way: not at all Total score: 4 Depression Screening Interpretation: Positive Depression Screening Follow-up: Existing condition and Follow-up Visit Requested Depression Screening Done: Yes 00532 - PHQ-9 Billing: Yes Source: Developed by Drs. Adán Schaeffer, Amber Barahona, Vance Hoyt and colleagues, with an educational jorge from [id number]. Thrive Questionnaire Date Thrive assessed: 05/15/24 I am a: Patient What is your living situation today?: I have a steady place to live Within the past 12 months, did the food you bought not last and you didn't have the money to get more?: Never true Within the past 12 months, did you worry whether your food would run out before you got money to buy more?: Never true Do you have trouble paying for medicines?: No Do you have trouble getting transportation to medical appointments?: No Do you have trouble paying your heating and electricity bill?: No Do you have trouble taking care of your child, family member or friend?: No Do you have trouble with day-to-day activities such as bathing, preparing meals, shopping, managing finances, etc.?: No Are you currently unemployed and looking for a job?: No Are you interested in more education?: No Please select the resources that you would like help with: None Currently or been in a relationship where the following occur: No concerns reported THRIVE Score: 0 AUDIT C Alcohol Use Questionnaire (AUDIT-C) 1. How often do you have a drink containing alcohol?: Never Total Score: 0 Score Reviewed/Action Taken: No FRANCISCO-7 AMB Questionnaire FRANCISCO-7 Date FRANCISCO - 7 assessed: 05/15/24 Feeling nervous, anxious, or on edge: 0 = Not at all Not being able to stop or control worryin = Not at all Worrying too much about different things: 0 = Not at all Trouble relaxin = Not at all Being so restless that it is hard to sit still: 0 = Not at all Becoming easily annoyed or irritable: 0 = Not at all Feeling afraid as if something awful might happen: 0 = Not at all Total FRANCISCO-7 score (0-4 normal; 5-9 mild; 10-14 moderate; 15-21 severe): 0 Source: Developed by Drs. Adán Schaeffer, Amber Barahona, Vance Hoyt and colleagues, with an educational jorge from [id number]. FRANCISCO-7 Assessment Billing FRANCISCO-7 Assessment Tool: FRANCISCO-7 Assessment 25741 Review of Systems Const All systems reviewed & are unremarkable except as noted in HPI and below Card Denies chest pain at rest, Denies chest pain with activity, Denies edema, Denies irregular heart rhythm, Denies claudication, Denies dyspnea, Denies dyspnea on exertion, Denies orthopnea, Denies paroxysmal nocturnal dyspnea and Denies slow heart rate Resp Denies cough, Denies dyspnea and Denies dyspnea on exertion Physical exam (Primary Care) Vital Signs: Last Vital Signs Pulse 92 05/15/24 09:19 BP 130/82 05/15/24 09:19 Pulse Ox 97 05/15/24 09:19 Oxygen Delivery Method Room Air 05/15/24 09:19 BMI result Body Mass Index 28.0 BMI Assessment/Plan discussion: High BMI High, discussed plan: lifestyle, weight reduction, dietary and physical activity Tobacco/Smoking Status: Tobacco use Status Tobacco use date assessed 05/15/24 05/15/24 09:23 Patient Tobacco Use Status Never used Tobacco 05/15/24 09:18 e-Cigarette/Vaping Use Never Used 05/15/24 09:18 PHQ-9: PHQ-9 Score PHQ-9: Total score 4 05/15/24 12:14 Depression Screening Interpretation: Positive Depression Screening Follow-up: Existing condition and Follow-up Visit Requested Thrive Assessment: Date of Thrive Assessment Date Thrive assessed 05/15/24 05/15/24 09:23 Currently or been in a relationship where the following occur: No concerns reported Resp Effort & Inspection: normal respiratory effort Auscultation: clear to auscultation bilaterally Cardio Jugular venous distension: no JVD Rate: regular rate Rhythm: regular rhythm Heart sounds: S1 normal heart sound present and S2 normal heart sound present Extrem General: Yes full ROM Coding Level of Care Code Est Pt Level 4 (42758) Complex EM visit Add On G2211 Diagnoses Positive MARY (antinuclear antibody) R76.8 Mild depression F32.0 Essential hypertension I10 Dyslipidemia E78.5 Additional Codes FRANCISCO-7 Assessment Billing - FRANCISCO-7 Assessment Tool: FRANCISCO-7 Assessment 72606 ([id number]) PHQ-9 - 59278 - PHQ-9 Billing: Yes ([id number]) Time Spent (min) 23 Assessment & Plan Assessment & Plan (1) Positive MARY (antinuclear antibody): Code(s): R76.8 - Other specified abnormal immunological findings in serum Category: Medical Plan: Referred to rheumatology. (2) Mild depression: Code(s): F32.0 - Major depressive disorder, single episode, mild Category: Medical Plan: Continue relaxation techniques. (3) Essential hypertension: Code(s): I10 - Essential (primary) hypertension Category: Medical Plan: Continue lisinopril and hydrochlorothiazide. Blood pressure goal is equal or less than 130/80. (4) Dyslipidemia: Code(s): E78.5 - Hyperlipidemia, unspecified Category: Medical Plan: Repeat lipid panel. Start low-cholesterol diet. Orders: Orders Lipid Panel Today E78.5 - Hyperlipidemia, unspecified Erythrocyte Sedimentation Rate Today R76.8 - Other specified abnormal immunological findings in serum CRP High Sensitivity Today R76.8 - Other specified abnormal immunological findings in serum Anti DNA DS Antibody Today R76.8 - Other specified abnormal immunological findings in serum Scleroderma 70 Antibody Today R76.8 - Other specified abnormal immunological findings in serum Complement C3 Today R76.8 - Other specified abnormal immunological findings in serum Complement C4 Today R76.8 - Other specified abnormal immunological findings in serum Celiac Disease Panel Today R76.8 - Other specified abnormal immunological findings in serum Vitamin D 25-OH Total Today E55.9 - Vitamin D deficiency, unspecified Comprehensive [place]. Panel Fast Today I10 - Essential (primary) hypertension Rheumatoid Factor Today R76.8 - Other specified abnormal immunological findings in serum Cyclic Citrullinated Peptide Today R76.8 - Other specified abnormal immunological findings in serum Complete Blood Count Auto Diff Today R76.8 - Other specified abnormal immunological findings in serum Sjogren's Antibodies Today R76.8 - Other specified abnormal immunological findings in serum Referrals Rheumatology Referral M25.50 - Pain in unspecified joint, R76.8 - Other specified abnormal immunological findings in serum
[2024-05-15 09:19] VITALS: BP 130/82; PULSE 92; O2SAT 97; BMI 28.0
== END 2024-05-15 09:43 | disposition home or self-care (01) ==
LOC: HO.HMCH 09:15
PROVIDERS: PCP Internal Medicine; Visit Provider Internal Medicine
DX: R76.8 Other specified abnormal immunological findings in serum (principal); F32.0 Major depressive disorder, single episode, mild; I10 Essential (primary) hypertension; E78.5 Hyperlipidemia, unspecified

== ENCOUNTER → 2024-05-15 09:14 | Outpatient (BNVA) | payer OTHER, SELFPAY | PROVIDERS: PCP Internal Medicine; Visit Provider Internal Medicine | DX: R76.8 Other specified abnormal immunological findings in serum (principal); F32.0 Major depressive disorder, single episode, mild; I10 Essential (primary) hypertension; E78.5 Hyperlipidemia, unspecified; Z79.899 Other long term (current) drug therapy | CPT/HCPCS: 96127 ==

== ENCOUNTER 2024-05-20 13:02 | Outpatient (AMB) | payer OTHER, SELFPAY ==
--- NOTE | 2024-05-20 13:03 | A.OFFVIS_ITS ---
Vital Signs 05/20/24 13:10 Height 5 ft 4 in Weight 164 lb 3.91 oz BMI 28.2 BP 142/90 H Blood Pressure Location Lt brachial Position Sitting Pulse 97 Pulse Source Pulse Oximeter Pulse Oximetry (%) 98 Oxygen Delivery Method Room Air Intake Visit Reasons: Abnormal lab/Joint Pain/CM Intake Note: Patient presents for Abnormal lab and joint pain. Allergies shrimp Allergy (Intermediate, Verified 05/20/24 13:09) rash,swollen face HPI Comments Details: This is a 58-year-old female who presents for evaluation of positive VIOLETA in the context of diffuse pains. She has a sister with lupus and another sister who of scleroderma. 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 She states that she gets intermittent aches in different areas such as her shoulder, low back, knees, hands. Denies any significant joint swelling. She denies any unintentional weight loss, denies unexplained fevers, she denies any history of DVT/PE. No significant hair loss. No mouth ulcers. [facility] Medical History Physical exam Hair loss MAYANK II (cervical intraepithelial neoplasia II) Insomnia Tension headache Mild depression Hypovitaminosis D Essential hypertension Surgical History History of loop electrical excision procedure (LEEP) Family History Father Diabetes Hypertension Mother Hypertension Stroke Diabetes Paternal Aunt Cancer Family/Other FH: mental illness Son In good health Sister Scleroderma Congestive heart failure Sister Systemic lupus erythematosus Social History Housing: Apartment Alcohol intake: never Patient Tobacco Use Status: Never used Tobacco e-Cigarette/Vaping Use: Never Used Second Hand Smoke Exposure: No service: No Current occupational status: employed Current occupational exposures/hazards: No Cognitive needs: No Hearing needs: No Vision needs: Yes Female Reproductive History Menstrual Age of Menarche: 12 Total pregnancies: 1 Full term: 1 Review of Systems Const Denies fatigue, Denies fever(s) and Denies weight loss Resp Reports no additional complaints Musc Reports back pain, Reports arthralgias, Denies joint swelling and Reports stiffness Skin/Breast Denies rash Endo Denies fatigue Physical Exam Vital Signs: Last Vital Signs Pulse 97 11/11/24 13:10 BP 142/90 H 05/20/24 13:10 Pulse Ox 98 05/20/24 13:10 Oxygen Delivery Method Room Air 05/20/24 13:10 BMI result Body Mass Index 28.2 Const General: cooperative, healthy appearing and comfortable Nutritional Appearance: overweight Orientation/consciousness: patient oriented x3 Limitations: no limitations HEENT Head: Yes normocephalic and Yes atraumatic Mouth: moist mucous membranes Resp Effort & Inspection: normal respiratory effort and able to speak in complete sentences Auscultation: clear to auscultation bilaterally Skin General skin exam: no rashes or lesions noted Neuro General: patient oriented x3 Extrem Other: Osteoarthritic changes of both hands with prominent Heberden's and Ruel's nodes Deformity of left 5th finger, (related to an accident as a child Normal nailfold capillaroscopy Assessment & Plan Assessment & Plan (1) Positive VIOLETA (antinuclear antibody): Code(s): R76.8 - Other specified abnormal immunological findings in serum Category: Medical Plan: This is a 58-year-old female who presents for evaluation of a positive VIOLETA in the context of positive family history of SLE in 1 sister and scleroderma another sister. On exam there is no active synovitis. Clinical picture rather consistent with osteoarthritis. Symptoms are degenerative and mechanical in nature. 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 However given her strong family history I will like to better understand her underlying immune process, in order to assess her risk. Follow-up after blood work is completed Plan I spent __ minutes reviewing patient's chart, evaluating patient, ordering diagnostic workup, counseling patient and documenting in the chart Orders: Orders Anti Extractable Nuclear Ag Today M32.9 - Systemic lupus erythematosus, unspecified Anti DNA DS Antibody Today M32.9 - Systemic lupus erythematosus, unspecified DNA Double Stranded-Crithidia Today M32.9 - Systemic lupus erythematosus, unspecified Sjogren's Antibodies Today M32.9 - Systemic lupus erythematosus, unspecified Complete Blood Count Auto Diff Today M32.9 - Systemic lupus erythematosus, unspecified Hepatitis A,B,C Profile Today M32.9 - Systemic lupus erythematosus, unspecified Immunofixation Pnl, Serum Today M32.9 - Systemic lupus erythematosus, unspecified Protein Electrophoresis, Serum Today M32.9 - Systemic lupus erythematosus, unspecified Cyclic Citrullinated Peptide Today M25.50 - Pain in unspecified joint RNA Polymerase III Ab Today M34.9 - Systemic sclerosis, unspecified Complement C3 Today M32.9 - Systemic lupus erythematosus, unspecified Complement C4 Today M32.9 - Systemic lupus erythematosus, unspecified C Reactive Protein Today M32.9 - Systemic lupus erythematosus, unspecified Erythrocyte Sedimentation Rate Today M32.9 - Systemic lupus erythematosus, unspecified Protein Creatinine Ratio, Ur Today M32.9 - Systemic lupus erythematosus, unspecified UA w Microscopic Today M32.9 - Systemic lupus erythematosus, unspecified Comprehensive Met. Panel Today M32.9 - Systemic lupus erythematosus, unspecified Rheumatoid Factor Today M25.50 - Pain in unspecified joint Scleroderma 70 Antibody Today M34.9 - Systemic sclerosis, unspecified Anti-Centromere B Antibodies Today M34.9 - Systemic sclerosis, unspecified Coding Level of Care Code New Pt Level 4 (08393) Diagnoses Positive VIOLETA (antinuclear antibody) R76.8
[2024-05-20 13:10] VITALS: BP 142/90; PULSE 97; O2SAT 98; BMI 28.2
== END 2024-05-20 13:30 | disposition home or self-care (01) ==
PROVIDERS: PCP Internal Medicine; Visit Provider Student in an Organized Health Care Education/Training Program
DX: R76.8 Other specified abnormal immunological findings in serum (principal)
CPT/HCPCS: 99204

== ENCOUNTER → 2024-05-20 13:02 | Outpatient (BNVA) | payer OTHER, SELFPAY | PROVIDERS: PCP Internal Medicine; Visit Provider Student in an Organized Health Care Education/Training Program ==

== ENCOUNTER 2024-06-10 09:55 | Outpatient (AMB) | payer OTHER, SELFPAY ==
--- NOTE | 2024-06-10 11:33 | MHC.OFFWIV ---
Intake Vital Signs 06/10/24 11:35 Weight 167 lb BP 150/100 H Blood Pressure Location Rt brachial Position Sitting Pulse 86 Pulse Source Pulse Oximeter Pulse Oximetry (%) 97 Oxygen Delivery Method Room Air Intake Visit Reasons: EP RT upper back side pain [phone] Intake Note: Patient here for mid and lower back pain that has been present for about 1 week. Patient Tobacco Use Status: Never used Tobacco Allergies shrimp Allergy (Intermediate, Verified 06/10/24 11:34) rash,swollen face Do you need a note to return to daycare/school/sports/work: No HPI HPI Comments History of Present Illness Details The patient is a 59-year-old female presenting with persistent right-sided back pain suggestive of renal colic. She reports experiencing this pain intermittently for several months, but it has since become constant. The patient describes the pain as originating in the middle to upper back area on the left side and radiating around to the right side. She denies any hematuria and has no history of nephrolithiasis. Previous consultation with her primary care physician suggested arthritis as a cause; however, the pain?s consistency and characteristics suggest otherwise. The patient describes increased pain upon palpation of the affected area but does not report any other urinary symptoms. There is no indication of previous relevant testing or interventions provided. [facility], [facility] Medical History Physical exam Hair loss MAYANK II (cervical intraepithelial neoplasia II) Insomnia Tension headache Mild depression Hypovitaminosis D Essential hypertension Surgical History History of loop electrical excision procedure (LEEP) Family History Father Diabetes Hypertension Mother Hypertension Stroke Diabetes Paternal Aunt Cancer Family/Other FH: mental illness Son In good health Sister Scleroderma Congestive heart failure Sister Systemic lupus erythematosus Social History Housing: Apartment Alcohol intake: never Patient Tobacco Use Status: Never used Tobacco e-Cigarette/Vaping Use: Never Used Second Hand Smoke Exposure: No service: No Current occupational status: employed Current occupational exposures/hazards: No Cognitive needs: No Hearing needs: No Vision needs: Yes Female Reproductive History Menstrual Age of Menarche: 12 Review of Systems Const All systems reviewed & are unremarkable except as noted in HPI and below Physical Exam Vital Signs: Last Vital Signs Pulse 86 06/10/24 11:35 BP 150/100 H 06/10/24 11:35 Pulse Ox 97 06/10/24 11:35 Oxygen Delivery Method Room Air 06/10/24 11:35 Const General: cooperative, healthy appearing, comfortable, no acute distress and well developed Orientation/consciousness: patient oriented x3 Limitations: no limitations HEENT Head: Yes normal to inspection Ears: hearing grossly normal bilaterally General nose exam: Normal external nose present Face and sinus: Yes normal facial exam Eyes General: appearance normal, both eyes and all related structures Neck Neck: Yes normal visual inspection and Yes full ROM Resp Effort & Inspection: normal respiratory effort and able to speak in complete sentences General: Yes CVA tenderness on the right Back/Spine/Pelvis Back: CVA tenderness Skin General skin exam: no rashes or lesions noted Neuro General: patient oriented x3 Extrem General: Yes normal to inspection Assessment & Plan Assessment & Plan (1) Right flank pain: Code(s): R10.9 - Unspecified abdominal pain Plan: Positive CVA tenderness on the right side, HPI is consistent with a kidney stone. Recommended patient go to the emergency department for further workup, called [facility] ED with expect. Patient was informed and verbally consented to the use of an ambient scribe for clinic note documentation during this visit. Coding Level of Care Code Est Pt Level 5 (27777) Diagnoses Right flank pain R10.9
[2024-06-10 11:35] VITALS: BP 150/100; PULSE 86; O2SAT 97
== END 2024-06-10 11:58 | disposition home or self-care (01) ==
PROVIDERS: PCP Internal Medicine; Visit Provider Physician Assistant
DX: R10.9 Unspecified abdominal pain (principal)

== ENCOUNTER → 2024-06-10 09:55 | Outpatient (BNVA) | payer OTHER, SELFPAY | PROVIDERS: PCP Internal Medicine; Visit Provider Physician Assistant ==

== ENCOUNTER 2024-06-10 12:16 | Emergency (ER) | payer OTHER, SELFPAY ==
--- NOTE | ~2024-06-10 | CT_ITS ---
EXAMINATION: CT ABDOMEN AND PELVIS WITHOUT CONTRAST CLINICAL INFORMATION: Right flank pain. COMPARISON: None available. TECHNIQUE: Multidetector volumetric imaging was performed from the superior aspect of the liver through the pubic symphysis. Sagittal and coronal reformatted images were obtained on the technologist's workstation. This CT examination was performed using dose optimization techniques as appropriate, variously including the following: *Automated exposure control *Adjustment of mA and/or kV according to patient size (this includes techniques or standardized protocols for targeted exams where dose is matched to indication/reason for exam; i.e. extremities or head) *Use of iterative reconstruction technique DLP: 534 mGy-cm FINDINGS: Limited evaluation of the intra-abdominal organs and vascular structures due to lack of IV contrast. LUNG BASES: No acute airspace disease in the included lungs. Calcified plaques in the coronary arteries. LIVER, GALLBLADDER, AND BILIARY TREE: Liver measures 15 cm. No intrahepatic biliary ductal dilatation. No pericholecystic fluid collection or gallbladder wall thickening. No extrahepatic biliary ductal dilatation. PANCREAS: No peripancreatic fluid collections. No main pancreatic ductal dilatation. SPLEEN: 8 cm. ADRENAL GLANDS: No nodular lesions. KIDNEYS AND URETERS: Right kidney: No hydronephrosis. No nephrolithiasis. Left kidney: 1 mm calcification in the lower pelvicalyceal system. No hydronephrosis. BLADDER: Fluid-filled. No calcifications. GASTROINTESTINAL TRACT: Appendix is normal. Numerous diverticula throughout the large intestine There is subtle pericolonic edema pattern in the distal descending colon and proximal sigmoid colon. No intestinal obstruction pattern. No pneumatosis intestinalis. No pneumoperitoneum. No ascites. Mild mesenteric edema pattern. ABDOMINAL WALL: Small tiny fat-containing umbilical hernia LYMPH NODES: No lymphadenopathy VASCULAR: Calcified plaques abdominal aorta and iliac arteries without aneurysm. PELVIC VISCERA: No gross masses in the adnexa or uterus. OSSEOUS STRUCTURES: Multilevel thoracolumbar spondylosis without acute fracture or listhesis. CT/CT abdomen pelvis wo IV con IMPRESSION: Nonobstructing 1 mm nephrolithiasis, left kidney. Diverticular disease with questionable early acute diverticulitis. Fleischner guidelines were followed. Electronically signed by: Mario Alberto Cevallos MD 06/10/2024 02:56 PM EST
[2024-06-10 12:52] VITALS: BP 193/107; PULSE 107; RESP 18; TEMP 36.6; O2SAT 99; BMI 28.7
--- NOTE | 2024-06-10 12:57 | ED.GENADULT ---
HPI - General Adult General Chief complaint: Back Pain/Injury Stated complaint: kidney stone sent from urgent care History of Present Illness HPI narrative: patient left completion of treatment by ed provider. Related Data Previous Rx's ?Medication ?Instructions ?Recorded hydrochlorothiazide 25 mg tablet 25 mg PO DAILY 90 days #90 tabs 10/18/21 lisinopril 20 mg tablet 20 mg PO DAILY 90 days #90 tabs 10/13/22 Allergies Allergy/AdvReac Type Severity Reaction Status Date / Time shrimp Allergy Intermediate rash,swollen Verified 06/10/24 12:53 face PMFSH Past Medical History Medical History Physical exam Hair loss MAYANK II (cervical intraepithelial neoplasia II) Insomnia Tension headache Mild depression Hypovitaminosis D Essential hypertension Surgical History History of loop electrical excision procedure (LEEP) Family History Family History Father Diabetes Hypertension Mother Hypertension Stroke Diabetes Paternal Aunt Cancer Family/Other FH: mental illness Son In good health Sister Scleroderma Congestive heart failure Sister Systemic lupus erythematosus Social History Social History Housing: Apartment Alcohol intake: never Patient Tobacco Use Status: Never used Tobacco e-Cigarette/Vaping Use: Never Used Second Hand Smoke Exposure: No Advance Directives: No Advance Directives Information Provided: No service: No Current occupational status: employed Current occupational exposures/hazards: No Cognitive needs: No Hearing needs: No Vision needs: Yes Physical Exam ED Vital Signs: Vital Signs - 24 hr 06/10/24 12:52 Temperature 98 F Pulse Rate 107 H Respiratory Rate 18 Blood Pressure 193/107 H Pulse Oximetry 99 Oxygen Delivery Method Room Air BMI result Body Mass Index 28.7 Medical Decision Making Medical Decision Making MDM Narrative: RME: 59-year-old female presents to ED for right flank pain for 1 week. Patient denies any dysuria, hematuria, nausea, vomiting. Physical exam positive for right flank on palpation. Negative for any signs of trauma. Patient denies any recent trauma. Labs imaging ordered. Patient he is to have blood pressure did not take her meds this morning. Patient's blood pressure also elevated due to pain. Lab Data 06/10/24 13:17 06/10/24 13:17 Labs: Lab Results 06/10/24 Range/Units 13:17 WBC 7.0 (4.8-10.8) X10*3/uL RBC 4.40 (4.20-5.50) X10*6/uL Hgb 13.2 (12.0-16.0) g/dl Hct 38.4 (37.0-47.0) % MCV 87.3 (80.0-98.0) fL MCH 30.0 (27.0-33.0) pg MCHC 34.4 (31.0-35.0) g/dl RDW 12.5 (11.0-16.0) % Plt Count 360 (160-400) X10*3/uL MPV 9.7 (9.4-12.3) fL Immature Gran % (Auto) 0.3 (0.0-0.4) % Neut % (Auto) 52.8 (45-73) % Lymph % (Auto) 36.0 (20-40) % Henry % (Auto) 7.7 (2-11) % Eos % (Auto) 2.3 (0-4) % Baso % (Auto) 0.9 (0-2) % Lymph # (Auto) 2.5 (1.2-4.9) X10*3/uL Henry # (Auto) 0.5 (0.1-1.2) X10*3/uL Eos # (Auto) 0.2 (0.0-0.4) X10*3/uL Baso # (Auto) 0.1 (0.0-0.2) X10*3/uL Abs Immat Gran (auto) 0.02 (0.00-0.03) X10*3/uL Absolute Neuts (auto) 3.7 (2.0-8.3) x10*3/uL Absolute Nucleated RBC 0.000 (0.0-0.012) X10*3/uL Nucleated RBC % (auto) 0.0 (0.0-0.2) /100WBC Sodium 139 (135-145) mmol/L Potassium 3.9 (3.3-5.1) mmol/L Chloride 107 (96-108) mmol/L Carbon Dioxide 28 (22-29) mmol/L Anion Gap 8 L (12-20) BUN 14 (9-16) mg/dL Creatinine 0.80 (0.5-1.4) mg/dL Estim Creat Clear Calc 76.3 Estimated GFR > 60 Random Glucose 111 (60-115) mg/dL Calcium 10.0 (8.4-10.2) mg/dL Total Bilirubin 0.4 (0.0-1.0) mg/dL AST 42 H (5-31) U/L ALT 22 (0-31) U/L Alkaline Phosphatase 106 (39-117) U/L Total Protein 7.9 (6.5-8.0) g/dL Albumin 4.2 (3.5-5.0) g/dL Lipase 16 (8-78) U/L Beta HCG, Quant 3 mIU/mL Urine Color Yellow Urine Appearance Clear Urine pH 6.0 (5.0-9.0) Ur Specific [place] 1.025 (1.005-1.025) Urine Protein Trace (Neg-Trace) mg/dL Urine Glucose (UA) Negative (Negative) mg/dL Urine Ketones Negative (Negative) mg/dL Urine Blood Negative (Negative) Urine Nitrite Negative (Negative) Ur Leukocyte Esterase Small (1+) H (Negative) Urine RBC 0-2 (0-2) /HPF Urine WBC 0-5 (0-5) /HPF Ur Squamous Epith Cells 6-10 (0-2) /HPF Urine Bacteria Trace (None Seen) Hyaline Casts 0-2 (0-2) /LPF Urine Test NEGATIVE (NEGATIVE) Discharge Plan Discharge Clinical Impression: Right flank pain Patient Disposition: Left W/O Completing Treatment Prescriptions: No Action hydrochlorothiazide 25 mg tablet 25 mg PO DAILY 90 Days Qty: 90 3RF lisinopril 20 mg tablet 20 mg PO DAILY 90 Days Qty: 90 1RF Discharge Date/Time: 06/10/24 20:37
[2024-06-10 13:26] LABS: MANUAL DIFF FLAG NO
[2024-06-10 13:28] LABS: Basophils Absolute Auto 0.1 X10*3/uL (0.0-0.2); Basophils Percent Auto 0.9 % (0-2); Eosinophils Absolute Auto 0.2 X10*3/uL (0.0-0.4); Eosinophils Percent Auto 2.3 % (0-4); Hematocrit 38.4 % (37.0-47.0); Hemoglobin 13.2 g/dl (12.0-16.0); Imm Gran Abs Auto 0.02 X10*3/uL (0.00-0.03); Imm Gran Pct Auto 0.3 % (0.0-0.4); Lymphocytes Absolute Auto 2.5 X10*3/uL (1.2-4.9); Mean Corpuscular HGB Conc 34.4 g/dl (31.0-35.0); Mean Corpuscular Volume 87.3 fL (80.0-98.0); Mean Platelet Volume 9.7 fL (9.4-12.3); Monocytes Absolute Auto 0.5 X10*3/uL (0.1-1.2); Monocytes Percent Auto 7.7 % (2-11); Neutrophils Absolute Auto 3.7 x10*3/uL (2.0-8.3); Neutrophils Percent Auto 52.8 % (45-73); Platelet Count 360 X10*3/uL (160-400); Red Cell Distribution Width 12.5 % (11.0-16.0)
[2024-06-10 13:36] LABS: Appearance Urine Clear; Color Urine Yellow; Glucose Urine UA Negative (Negative); Leukocyte Esterase Urine Small (1+) (Negative); Nitrite Urine Negative (Negative); Specific Gravity - Urine 1.025 (1.005-1.025); UMIC TRIGGER UACC YES; Urine Blood Negative (Negative); Urine Ketones Negative (Negative); Urine Protein Trace mg/dL (Neg-Trace)
[2024-06-10 13:38] LABS: UPreg QC Valid YES; Urine Pregnancy NEGATIVE (NEGATIVE)
[2024-06-10 13:50] LABS: Bacteria Urine Trace (None Seen); Hyaline Casts Urine 0-2 /LPF (0-2); RBC Urine 0-2 /HPF (0-2); UACC Culture Trigger YES; WBC Urine 0-5 /HPF (0-5)
[2024-06-10 14:03] LABS: Alanine Aminotransferase 22 U/L (0-31); Albumin Level 4.2 g/dL (3.5-5.0); Alkaline Phosphatase 106 U/L (39-117); Anion Gap 8 (12-20); Aspartate Amino Transferase 42 U/L (5-31); Bilirubin Total 0.4 mg/dL (0.0-1.0); Blood Urea Nitrogen 14 mg/dL (9-16); Carbon Dioxide 28 mmol/L (22-29); Chloride 107 mmol/L (96-108); Creatinine Clr Calc Pharmacy 76.3; Estimated Glomerular Filt Rate > 60; Glucose Random 111 mg/dL (60-115); Lipase 16 U/L (8-78); Potassium 3.9 mmol/L (3.3-5.1); Sodium 139 mmol/L (135-145); Total Protein 7.9 g/dL (6.5-8.0)
[2024-06-10 14:04] LABS: HCG Quantitative 3 mIU/mL
== END 2024-06-10 20:37 | disposition left against medical advice (07) ==
PROVIDERS: Physician Assistant; Emergency Provider Internal Medicine; PCP Internal Medicine
DX: R10.9 Unspecified abdominal pain (principal)
CPT/HCPCS: 36415; 74176; 80053; 81001; 81025; 83690; 84702; 85025; 87086; 87147; 99282; 99284

== ENCOUNTER → 2024-06-10 12:55 | Outpatient (BNV) | payer OTHER, SELFPAY | PROVIDERS: PCP Internal Medicine; Visit Provider Radiology Diagnostic Radiology | DX: N20.0 Calculus of kidney (principal) | CPT/HCPCS: 74176 ==

== ENCOUNTER 2024-06-27 10:43 | Outpatient (REF) | payer OTHER, SELFPAY ==
[2024-06-27 11:08] LABS: MANUAL DIFF FLAG NO
[2024-06-27 11:48] LABS: Basophils Percent Auto 0.7 % (0-2); Eosinophils Absolute Auto 0.1 X10*3/uL (0.0-0.4); Eosinophils Percent Auto 2.4 % (0-4); Hematocrit 39.3 % (37.0-47.0); Hemoglobin 13.5 g/dl (12.0-16.0); Imm Gran Abs Auto 0.01 X10*3/uL (0.00-0.03); Imm Gran Pct Auto 0.2 % (0.0-0.4); Lymphocytes Percent Auto 33.4 % (20-40); Mean Corpuscular HGB Conc 34.4 g/dl (31.0-35.0); Mean Corpuscular Hemoglobin 29.9 pg (27.0-33.0); Mean Corpuscular Volume 87.1 fL (80.0-98.0); Monocytes Absolute Auto 0.4 X10*3/uL (0.1-1.2); Monocytes Percent Auto 6.6 % (2-11); Neutrophils Absolute Auto 3.4 x10*3/uL (2.0-8.3); Neutrophils Percent Auto 56.7 % (45-73); Platelet Count 350 X10*3/uL (160-400); Red Blood Count 4.51 X10*6/uL (4.20-5.50); Red Cell Distribution Width 12.5 % (11.0-16.0)
[2024-06-27 12:13] LABS: Rheumatoid Factor < 13.0 IU/mL (<15.0)
[2024-06-27 12:25] LABS: Alanine Aminotransferase 22 U/L (0-31); Albumin Level 4.5 g/dL (3.5-5.0); Alkaline Phosphatase 91 U/L (39-117); Anion Gap 11 (12-20); Aspartate Amino Transferase 24 U/L (5-31); Bilirubin Total 0.4 mg/dL (0.0-1.0); Blood Urea Nitrogen 13 mg/dL (9-16); Calcium 9.7 mg/dL (8.4-10.2); Carbon Dioxide 29 mmol/L (22-29); Chloride 107 mmol/L (96-108); Estimated Glomerular Filt Rate > 60; Glucose Random 89 mg/dL (60-115); Potassium 3.5 mmol/L (3.3-5.1); Sodium 143 mmol/L (135-145); Total Protein 8.4 g/dL (6.5-8.0)
[2024-06-27 12:29] LABS: Erythrocyte Sedimentation Rate 23 MM/HR (0-20)
[2024-06-27 12:40] LABS: HBS Num1 0.38 mIU/mL (0-7.99); HBc Num1 0.09 S/CO (0.00-0.79); HBsAGNum1 0.34 S/CO (0.00-0.99); Hepatitis A Antibody IgM 0.18 Index (0-0.79); Hepatitis B Core Antibody Nonreactive (Nonreactive); Hepatitis B Surface Antigen Negative (Negative); ~HepC Num1 0.16 S/CO (0.00-0.79); ~Hepatitis A Antibody IgM Nonreactive (Nonreactive); ~Hepatitis B Surface Antibody NONREACTIVE (Nonreactive); ~Hepatitis C Antibody Nonreactive (Nonreactive)
[2024-06-27 13:36] LABS: Creatinine Urine 144.89 mg/dL; Protein/Creatinine Ratio, Ur 0.19 (<0.2); Total Protein Urine Random 28 mg/dL (<12)
[2024-06-27 13:42] LABS: Appearance Urine Clear; Color Urine Yellow; Glucose Urine UA Negative (Negative); Leukocyte Esterase Urine Negative (Negative); Nitrite Urine Negative (Negative); PH 5.5 (5.0-9.0); Specific Gravity - Urine 1.025 (1.005-1.025); UMIC TRIGGER UA YES; Urine Blood Trace (Negative); Urine Ketones Negative (Negative); Urine Protein 30 (1+) mg/dL (Neg-Trace)
[2024-06-27 13:50] LABS: Bacteria Urine None Seen (None Seen); Hyaline Casts Urine 0-2 /LPF (0-2); RBC Urine 0-2 /HPF (0-2); WBC Urine 0-5 /HPF (0-5)
[2024-06-28 14:13] LABS: Anti DNA DS Antibody <1 IU/mL; Antibody to SS-A Antigen <1.0 NEG AI (<1.0 NEG); Antibody to SS-B Antigen <1.0 NEG AI (<1.0 NEG); SM/Ribonucleoprotein Ab <1.0 NEG AI (<1.0 NEG); Scleroderma 70 Antibody <1.0 NEG AI (<1.0 NEG); Smith Protein <1.0 NEG AI (<1.0 NEG)
[2024-06-28 14:49] LABS: Complement C3 167 mg/dL (83-193)
[2024-06-28 19:24] LABS: Anti-Centromere B Antibodies <1.0 NEG AI (<1.0 NEG)
[2024-06-28 20:02] LABS: Cyclic Citrullinated Peptide <16 UNITS
[2024-07-01 10:43] LABS: Prot Elec - Albumin 4.2 g/dL (3.8-4.8); Prot Elec - Alpha1 0.3 g/dL (0.2-0.3); Prot Elec - Alpha2 0.7 g/dL (0.5-0.9); Prot Elec - Beta 1 0.5 g/dL (0.4-0.6); Prot Elec - Beta 2 0.4 g/dL (0.2-0.5); Prot Elec - Gamma 1.4 g/dL (0.8-1.7); Prot Elec - Total Protein 7.5 g/dL (6.1-8.1)
[2024-07-01 17:34] LABS: IgA 252 mg/dL (47-310); IgG 1573 mg/dL (600-1640); IgM 40 mg/dL (50-300)
[2024-07-04 13:58] LABS: DNAds, Crithidia Antibody Negative (Negative)
== END 2024-06-27 10:44 | disposition home or self-care (01) ==
LOC: HO.LAB 10:43
PROVIDERS: PCP Internal Medicine; Visit Provider Student in an Organized Health Care Education/Training Program
DX: M32.9 Systemic lupus erythematosus, unspecified (principal); M25.50 Pain in unspecified joint; M34.9 Systemic sclerosis, unspecified
CPT/HCPCS: 36415; 80053; 81001; 82570; 82784; 83520; 84156; 84165; 85025; 85652; 86140; 86160; 86200; 86225; 86235; 86255; 86334; 86431; 86704; 86706; 86709; 86803; 87340

== ENCOUNTER → 2024-08-23 11:15 | Outpatient (BNVA) | payer OTHER, SELFPAY | PROVIDERS: PCP Internal Medicine; Visit Provider Physician Assistant | DX: S80.01XA Contusion of right knee, initial encounter (principal); S93.402A Sprain of unspecified ligament of left ankle, initial encounter; W00.2XXA Other fall from one level to another due to ice and snow, initial encounter | CPT/HCPCS: 29515; 73564; 73610; 99204 ==

== ENCOUNTER → 2024-08-30 13:08 | Outpatient (BNVA) | payer OTHER, SELFPAY | PROVIDERS: PCP Internal Medicine; Visit Provider Physician Assistant Medical | DX: S80.01XA Contusion of right knee, initial encounter (principal); S93.402A Sprain of unspecified ligament of left ankle, initial encounter; W00.2XXA Other fall from one level to another due to ice and snow, initial encounter; Z02.79 Encounter for issue of other medical certificate | CPT/HCPCS: 99213 ==

== ENCOUNTER 2024-12-25 09:38 | Outpatient (AMB) | payer OTHER, SELFPAY ==
--- NOTE | 2024-12-25 09:41 | A.OFFPC_ITS ---
Vital Signs 12/25/24 09:49 Height 5 ft 4 in Weight 163 lb BMI 28.0 BP 174/108 H Blood Pressure Location Lt brachial Intake Visit Reasons: PE Intake Note: Patient here for a physical exam Director Plans Required: No Accompanied by: Self / Same As Patient Allergies shrimp Allergy (Intermediate, Verified 12/25/24 09:56) rash,swollen face Medication List - Last Reconciled 12/25/24 by Mary Heard MD hydrochlorothiazide 25 mg PO DAILY 90 days lisinopril 20 mg PO DAILY 90 days Tobacco use date assessed: 12/25/24 Dental Screening Dental Screen Date: 12/25/24 Did you have a dental visit in the last 12 months?: Yes Did you have a dental problem in the last 6 months where you did not have access to dental care?: No Was dental information given to patient?: Patient has dentist HPI HPI Comments History of Present Illness Details This is a 59-year-old female with hypertension that comes for her physical exam. Mammogram done last year. Pap smear done 2022. Colonoscopy done over 5 years ago and she was in a 5 year plan. She declines colonoscopy fo r now. Blood pressure elevated and I will increase lisinopril to 30 mg and blood pressure will be recheck in 3 weeks by nurse navigator. Blood pressure goal is equal or less than 130/80. Vaccines up-to-date. [facility] Medical History Physical exam Hair loss MAYANK II (cervical intraepithelial neoplasia II) Insomnia Tension headache Mild depression Hypovitaminosis D Essential hypertension Surgical History History of loop electrical excision procedure (LEEP) Family History Father Diabetes Hypertension Mother Hypertension Stroke Diabetes Paternal Aunt Cancer Family/Other FH: mental illness Son In good health Sister Scleroderma Congestive heart failure Sister Systemic lupus erythematosus Social History Housing: Apartment Alcohol intake: never Patient Tobacco Use Status: Never used Tobacco e-Cigarette/Vaping Use: Never Used Second Hand Smoke Exposure: No service: No Current occupational status: employed Current occupational exposures/hazards: No Cognitive needs: No Hearing needs: No Vision needs: Yes Female Reproductive History Menstrual Age of Menarche: 12 Questionnaire PHQ-9 Over the last 2 weeks, how often have you been bothered by any of the following problems? 1. Little interest or pleasure in doing things: several days 2. Feeling down, depressed, or hopeless: several days 3. Trouble falling or staying asleep, or sleeping too much: several days 4. Feeling tired or having little energy: several days 5. Poor appetite or overeating: several days 6. Feeling bad about yourself - or that you are a failure or have let yourself or your family down: not at all 7. Trouble concentrating on things, such as reading the newspaper or watching television: not at all 8. Moving or speaking so slowly that other people could have noticed. Or the opposite - being so fidgety or restless that you have been moving around a lot more than usual: not at all 9. Thoughts that you would be better off or of hurting yourself in some way: not at all Total score: 5 Depression Screening Interpretation: Positive Depression Screening Follow-up: Existing condition and Follow-up Visit Requested Depression Screening Done: Yes 86429 - PHQ-9 Billing: Yes Source: Developed by Drs. Adán Schaeffer, Amber Barahona, Vance Hoyt and colleagues, with an educational jorge from [employer]. Thrive Questionnaire Date Thrive assessed: 12/25/24 I am a: Patient What is your living situation today?: I have a steady place to live Within the past 12 months, did the food you bought not last and you didn't have the money to get more?: Sometimes True Within the past 12 months, did you worry whether your food would run out before you got money to buy more?: Often true Do you have trouble paying for medicines?: No Do you have trouble getting transportation to medical appointments?: No Do you have trouble paying your heating and electricity bill?: No Do you have trouble taking care of your child, family member or friend?: No Do you have trouble with day-to-day activities such as bathing, preparing meals, shopping, managing finances, etc.?: No Are you currently unemployed and looking for a job?: No Are you interested in more education?: No Please select the resources that you would like help with: None Currently or been in a relationship where the following occur: No concerns reported THRIVE Score: 2 AUDIT C Alcohol Use Questionnaire (AUDIT-C) 1. How often do you have a drink containing alcohol?: Monthly or less 2. How many drinks containing alcohol do you have on a typical day when you are drinking?: 1 or 2 3. How often do you have six or more drinks on one occasion?: Never Total Score: 1 Score Reviewed/Action Taken: No FRANCISCO-7 AMB Questionnaire FRANCISCO-7 Date FRANCISCO - 7 assessed: 12/25/24 Feeling nervous, anxious, or on edge: 1 = Several days Not being able to stop or control worryin = Several days Worrying too much about different things: 1 = Several days Trouble relaxin = Several days Being so restless that it is hard to sit still: 0 = Not at all Becoming easily annoyed or irritable: 1 = Several days Feeling afraid as if something awful might happen: 1 = Several days Total FRANCISCO-7 score (0-4 normal; 5-9 mild; 10-14 moderate; 15-21 severe): 6 Source: Developed by Drs. Adán Schaeffer, Amber Barahona, Vance Hoyt and colleagues, with an educational jorge from [employer]. FRANCISCO-7 Assessment Billing FRANCISCO-7 Assessment Tool: FRANCISCO-7 Assessment 98035 Review of Systems Const All systems reviewed & are unremarkable except as noted in HPI and below Card Denies chest pain at rest, Denies chest pain with activity, Denies edema, Denies irregular heart rhythm, Denies claudication, Denies dyspnea, Denies dyspnea on exertion, Denies orthopnea, Denies paroxysmal nocturnal dyspnea and Denies slow heart rate Resp Denies cough, Denies dyspnea and Denies dyspnea on exertion Physical exam (Primary Care) Vital Signs: Last Vital Signs BP 174/108 H 12/25/24 09:49 BMI result Body Mass Index 28.0 Tobacco/Smoking Status: Tobacco use Status Tobacco use date assessed 12/25/24 12/25/24 09:54 Patient Tobacco Use Status Never used Tobacco 12/25/24 09:46 e-Cigarette/Vaping Use Never Used 12/25/24 09:46 PHQ-9: PHQ-9 Score PHQ-9: Total score 5 12/25/24 10:00 Depression Screening Interpretation: Positive Depression Screening Follow-up: Existing condition and Follow-up Visit Requested Thrive Assessment: Date of Thrive Assessment Date Thrive assessed 12/25/24 12/25/24 09:46 Currently or been in a relationship where the following occur: No concerns reported HENMD Head: Yes normal to inspection, Yes normocephalic and Yes atraumatic Ears: external ears normal Eyes General: appearance normal, both eyes and all related structures Eyelids: Yes eyelids normal Conjunctivae: conjunctivae normal Neck Neck: Yes normal visual inspection and Yes supple Resp Effort & Inspection: normal respiratory effort Auscultation: clear to auscultation bilaterally Cardio Jugular venous distension: no JVD Rate: regular rate Rhythm: regular rhythm Heart sounds: S1 normal heart sound present and S2 normal heart sound present GI Inspection: Yes normal to inspection Palpation (GI): Soft to palpation and nontender Auscultation: normal bowel sounds Skin General skin exam: no rashes or lesions noted Neuro General: no focal motor deficits Extrem General: Yes full ROM Psych Appearance: grossly normal Coding Level of Care Code Est Pt Prev Care 40-64y(40241) Diagnoses Physical exam Z00.00 Mild depression F32.0 Additional Codes FRANCISCO-7 Assessment Billing - FRANCISCO-7 Assessment Tool: FRANCISCO-7 Assessment 71083 ([id number]) PHQ-9 - 58510 - PHQ-9 Billing: Yes ([id number]) Time Spent (min) 30 Assessment & Plan Assessment & Plan (1) Physical exam: Code(s): Z00.00 - Encounter for general adult medical examination without abnormal findings Category: Medical (2) Mild depression: Code(s): F32.0 - Major depressive disorder, single episode, mild Category: Medical Plan Continue hydrochlorothiazide. Increase lisinopril. Blood pressure goal is equal or less than 130/80. Recheck blood pressure with nurse navigator in 3 weeks. Repeat physical exam in a year. Orders: Orders Comprehensive [place]. Panel Fast Today Z00.00 - Encounter for general adult medical examination without abnormal findings Lipid Panel Today Z00.00 - Encounter for general adult medical examination without abnormal findings Medications: New lisinopril 30 mg PO DAILY 90 tabs 1RF 90 days Discontinued lisinopril Discontinued Reason: Patient Completed Course 20 mg PO DAILY 90 days 90 tabs 1RF
[2024-12-25 09:49] VITALS: BP 174/108; BMI 28.0
== END 2024-12-25 10:13 | disposition home or self-care (01) ==
LOC: HO.HMCH 09:39
PROVIDERS: PCP Internal Medicine; Visit Provider Internal Medicine
DX: Z00.00 Encounter for general adult medical examination without abnormal findings (principal); F32.0 Major depressive disorder, single episode, mild

== ENCOUNTER → 2024-12-25 09:38 | Outpatient (BNVA) | payer OTHER, SELFPAY | PROVIDERS: PCP Internal Medicine; Visit Provider Internal Medicine | DX: Z00.00 Encounter for general adult medical examination without abnormal findings (principal); I10 Essential (primary) hypertension; F32.0 Major depressive disorder, single episode, mild | CPT/HCPCS: 96127 ==

== ENCOUNTER 2025-01-13 10:56 | Outpatient (REF) | payer OTHER, SELFPAY ==
--- NOTE | ~2025-01-13 | MM_ITS ---
EXAMINATION: MM SCREENING DIGITAL BREAST TOMOSYNTHESIS, BILATERAL CLINICAL INFORMATION: Screening. Asymptomatic. COMPARISON: Comparison made to multiple prior, most recent January 12, 2024, and most remote May 24, 2017. TECHNIQUE: Digital breast tomosynthesis is performed in both the craniocaudal and mediolateral oblique views along with computer-aided detection (CAD). Synthesized 2D images are generated from the tomosynthesis. FINDINGS: BREAST COMPOSITION: There are scattered areas of fibroglandular density (ACR BI-RADS breast composition Category b). BILATERAL BREASTS: No significant masses, suspicious calcifications or other abnormalities are seen in either breast. MM/MM tomosynthesis screening BI IMPRESSION: BILATERAL BREASTS: Negative, no mammographic evidence of malignancy. Normal interval follow-up is recommended in 12 months. ASSESSMENT: BI-RADS BI-RADS 1 - Negative RECOMMENDATION: Routine annual mammography screening. 1 year F/U This examination should not preclude the clinical evaluation of a suspicious palpable abnormality. This patient's information was entered into a reminder system with a target due date for their next mammogram. Electronically signed by: Ila Levy MD 01/23/2025 05:08 PM EDT
== END 2025-01-13 10:57 | disposition home or self-care (01) ==
LOC: HO.MAMMO 10:56
PROVIDERS: PCP Internal Medicine; Visit Provider Internal Medicine
DX: Z12.31 Encounter for screening mammogram for malignant neoplasm of breast (principal)
CPT/HCPCS: 77063; 77067

== ENCOUNTER → 2025-01-13 11:00 | Outpatient (BNV) | payer OTHER, SELFPAY | PROVIDERS: PCP Internal Medicine; Visit Provider Radiology Body Imaging | DX: Z12.31 Encounter for screening mammogram for malignant neoplasm of breast (principal) | CPT/HCPCS: 77063; 77067 ==